=== PATIENT | male | born 1960 | race Caucasian/White ===

== ENCOUNTER → 2021-08-29 | Outpatient (CLI) | payer BC ==
[~2021-08-29] MED LIST: ASPI-1238 PO; ATOR80TA76 PO; CLOP75TA28 PO; FLUO20CA48 PO; FURO-125 PO; ISOS30TA82 PO; METO-351 PO; MTP25TSR PO; MULT-1136 PO; OMG1KC PO; OXC5T PO; PANT40TA52 PO; SENN1TAB76 PO
== END ==
LOC: ORTHO 08:38
PROVIDERS: ATTEND Orthopaedic Surgery
DX: Z47.89 Encounter for other orthopedic aftercare (principal); I25.10 Atherosclerotic heart disease of native coronary artery without angina pectoris; E78.2 Mixed hyperlipidemia; Z98.890 Other specified postprocedural states

== ENCOUNTER → 2021-09-19 | Outpatient (CLI) | payer BC ==
--- NOTE | 2021-09-19 10:16 | Diagnostic Imaging Report ---
INDICATION: Follow-up of the right tibia and fibular fracture. Comparison with 08/13/2021. FINDINGS: Anatomical realignment of the distal comminuted tibial fracture with side plate and bone screws remain in good position. Fracture line is still visible without significant callus. The nondisplaced proximal fibular shaft fracture remains in good alignment with early healing. Ankle mortise shows good alignment. IMPRESSION: 1. ORIF of the distal tibial shaft fracture showing good anatomical alignment. No significant callus formation is seen at this time. Dictated by: Dictated on workstation # [id number]
== END ==
LOC: ORTHO 09:51
PROVIDERS: ATTEND Orthopaedic Surgery
DX: S82.201D Unspecified fracture of shaft of right tibia, subsequent encounter for closed fracture with routine healing (principal); S82.401D Unspecified fracture of shaft of right fibula, subsequent encounter for closed fracture with routine healing; X58.XXXD Exposure to other specified factors, subsequent encounter
CPT/HCPCS: 73590

== ENCOUNTER → 2021-10-31 | Outpatient (CLI) | payer BC ==
--- NOTE | 2021-10-31 11:05 | Diagnostic Imaging Report ---
INDICATION: Right leg fracture followup. TECHNIQUE/COMPARISON: AP and lateral views of the right tibia and fibula were obtained and compared with 09/19/2021. FINDINGS: The distal tibial fracture appears in anatomic alignment with plate and screws in place in the distal tibia. Hardware is unchanged compared to the prior study. There is further healing of the distal tibial fractures but there is persistent lucency at the fracture site. The proximal fibular fracture also shows further healing compared to the prior study but healing is not yet complete. There are vascular calcifications noted. IMPRESSION: Stable alignment of the proximal fibular and distal tibial shaft fractures with further healing compared to the prior study. Stable hardware position in the distal tibia. Dictated by: Dictated on workstation # [id number]
== END ==
LOC: ORTHO 08:10
PROVIDERS: ATTEND Orthopaedic Surgery
DX: S82.91XD Unspecified fracture of right lower leg, subsequent encounter for closed fracture with routine healing (principal); X58.XXXD Exposure to other specified factors, subsequent encounter
CPT/HCPCS: 73590

== ENCOUNTER → 2021-12-05 | Outpatient (CLI) | payer BC ==
--- NOTE | 2021-12-05 08:59 | Diagnostic Imaging Report ---
INDICATION: Tibial fracture AP and lateral views of right lower leg are obtained. Since 10/31/2021, there has been an increase in callus about the spiral fracture of distal tibial shaft. Medial fixation plate and screws remain in place and alignment is unremarkable. There is also near anatomic alignment about the subacute proximal fibular shaft fracture. IMPRESSION: Increasing fracture across the internally fixed tibial fracture and stable subacute proximal fibular shaft fracture. Dictated by: Dictated on workstation # [id number]
== END ==
LOC: ORTHO 08:04
PROVIDERS: ATTEND Orthopaedic Surgery
DX: Z47.89 Encounter for other orthopedic aftercare (principal); S82.201D Unspecified fracture of shaft of right tibia, subsequent encounter for closed fracture with routine healing; S82.401D Unspecified fracture of shaft of right fibula, subsequent encounter for closed fracture with routine healing; X58.XXXD Exposure to other specified factors, subsequent encounter
CPT/HCPCS: 73590; G0463; 99213

== ENCOUNTER → 2022-02-01 | Outpatient (CLI) | payer BC ==
--- NOTE | 2022-02-01 14:25 | Diagnostic Imaging Report ---
TIBIA/FIBULA, RIGHT, 2 VIEWS INDICATION: Fracture follow-up COMPARISON: 12/05/2021 TECHNIQUE: 2 views of the right tibia and fibula FINDINGS: Distal tibial shaft fracture shows progressive healing with increasing callus formation. There is no interosseous bridging within the fracture. The reconstruction plate and screws remain intact. Proximal fibular shaft fracture shows features of healing. Soft tissues over the lower leg have improved but persist. IMPRESSION: Partial healing of distal tibial shaft fracture, status post ORIF. Dictated by: Dictated on workstation # [id number]
== END ==
LOC: ORTHO 08:03
PROVIDERS: ATTEND Orthopaedic Surgery
DX: Z09 Encounter for follow-up examination after completed treatment for conditions other than malignant neoplasm (principal); S82.301D Unspecified fracture of lower end of right tibia, subsequent encounter for closed fracture with routine healing; X58.XXXD Exposure to other specified factors, subsequent encounter
CPT/HCPCS: 73590; G0463; 99213

== ENCOUNTER 2022-03-11 09:55 | Emergency (ER) | payer BC ==
[~2022-03-11] VITALS: Ht 183 cm; Wt 92.1 kg
--- NOTE | 2022-03-11 10:44 | ED Integumentary General ---
General Chief Complaint: Skin/Wound Problems Stated Complaint: RASH ON RIGHT LEG/BACK/CHEST Nursing Triage Note: PT AMB TO FT 1 W C/O IRRITATING/ITCHY RASH ALL OVER BODY. PT STATES AREAS OF CONCERN HAVE BEEN INTERMITTENT X2-3 MONTHS. PT REPORTS HE'S BEEN EVALUATED AT [facility] AND PRESCRIBED SEVERAL TOPICAL CREAMS WELL RECEIVED SEVERAL DIFFERENT DIAGNOSES. PT A&OX4. Source: patient Exam Limitations: no limitations History of Present Illness Date Seen by Provider: Mar 11, 2022 Time Seen by Provider: 10:43 Initial Comments This 61-year-old gentleman presents to the emergency room with concerns about a persistent pestering rash scattered throughout various parts of his body. It has been present since early January, probably more than 6 weeks. It started on the right anterior lower leg after having a splint and boot used after a trauma surgery. It has since spread to other areas including the posterior left knee and the back. He initially treated with miconazole starting on February 01. There was little improvement. He then tried triamcinolone and oral steroids starting on February 08. He felt like the topical triamcinolone helped some. However, symptoms quickly rebounded. There is a linear component to the rash on the right rothman. After he seemed to fail the steroid therapy, he was prescribed permethrin. He has done 1 full treatment of permethrin without improvement. Rash is very pruritic and he has excoriated some areas of it. He denies any new or changed medications. Allergies and Home Medications Allergies Coded Allergies: No Known Drug Allergies (Unverified , 08/30/21) Patient Home Medication List Home Medication List Reviewed: Yes Aspirin (Aspirin EC) 81 Mg Tablet., 81 MG PO DAILY Prescribed by: RAFAEL POTTER on 08/16/21 0943 Atorvastatin Calcium (Atorvastatin Calcium) 80 Mg Tablet, 80 MG PO HS, (Reported) Entered as Reported by: VENANCIO CHRISTIANSON on 08/14/21 1301 Fluoxetine HCl (Fluoxetine HCl) 20 Mg Capsule, 20 MG PO DAILY, (Reported) Entered as Reported by: VENANCIO CHRISTIANSON on 08/14/21 1301 Hydroxyzine HCl (Hydroxyzine HCl) 25 Mg Tablet, 25 MG PO Q4H PRN for ITCHING Prescribed by: AFSHIN RASCON on 03/11/22 1109 Metoprolol Succinate (Metoprolol Succinate) 25 Mg Tab.er.24h, 25 MG PO DAILY, (Reported) Entered as Reported by: VENANCIO CHRISTIANSON on 08/14/21 1301 Multivitamin (Multivitamin) 1 Each Tablet, 1 EACH PO DAILY Prescribed by: RAFAEL POTTER on 08/16/21 0943 Oxycodone Hcl (Oxyir Tablet) 5 Mg Tab, 5 MG PO TID PRN for PAIN-SEVERE (8-10) 1ST LINE Prescribed by: RAFAEL POTTER on 08/16/21 0944 Sennosides/Docusate Sodium (Stool Softener-Laxative Tablet) 8.6 Mg-50 Mg Tablet, 2 EA PO BID PRN for CONSTIPATION-5TH LINE Prescribed by: RAFAEL POTTER on 08/16/21 0943 Terbinafine HCl (Terbinafine HCl) 250 Mg Tablet, 250 MG PO DAILY Prescribed by: AFSHIN RASCON on 03/11/22 1109 Review of Systems Review of Systems Constitutional: no symptoms reported EENTM: no symptoms reported Respiratory: no symptoms reported Cardiovascular: no symptoms reported Gastrointestinal: no symptoms reported Genitourinary: no symptoms reported Musculoskeletal: see HPI Skin: see HPI Psychiatric/Neurological: No Symptoms Reported Endocrine: No Symptoms Reported Hematologic/Lymphatic: No Symptoms Reported Past Aptbnju-Unosro-Raavxe Hx Patient Social History Tobacco Use?: Yes Tobacco type used: Cigarettes Smoking Status: Current Everyday Smoker Use of E-Cig and/or Vaping dev: No Substance use?: No Alcohol Use?: Yes Alcohol type: Beer Immunizations Up To Date Tetanus Booster (TDap): Unknown PED Vaccines UTD: Yes Influenza Vaccine Up-to-Date: No; Not Current First/Initial COVID19 Vaccinat: 2020 Second COVID19 Vaccination Robin: 2020 Third COVID19 Vaccination Date: 2021 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 X3 Seasonal Allergies Seasonal Allergies: No Past Medical History Surgery/Hospitalization HX: HEMORRHAGIC STROKE, CAD Surgeries: Yes (brain, angiocele, L shoulder) Appendectomy, Orthopedic Respiratory: No Currently Using CPAP: No Currently Using BIPAP: No Cardiac: Yes (murmur as a child ) Heart Attack, Hypertension Neurological: Yes Stroke (Hemorrhagic) Genitourinary: No Gastrointestinal: Yes Gastroesophageal Reflux Musculoskeletal: No Endocrine: No HEENT: No Cancer: No Psychosocial: No Integumentary: No Blood Disorders: No Family Medical History Patient reports no known family medical history. No Pertinent Family Hx Physical Exam Vital Signs Vital Signs - First Documented 03/11/22 10:01 Temp 36.6 Pulse 76 Resp 20 B/P (MAP) 154/83 (106) Pulse Ox 98 O2 Delivery Room Air Capillary Refill : Less Than 3 Seconds General Appearance: WD/WN, no apparent distress HEENT: normal ENT inspection Neck: normal inspection Cardiovascular: regular rate, rhythm, no edema, no murmur Respiratory: lungs clear, normal breath sounds, no respiratory distress Neurologic/Psychiatric: no motor/sensory deficits, alert, normal mood/affect, oriented x 3 Skin: warm/dry, rash (Polymorphic rash scattered about the body and most prominent over the right rothman, left posterior knee area, and central upper back. Some areas are excoriated. It is raised and mildly erythematous.) Progress/Results/Core Measures Results/Orders Vital Signs/I&O 03/11/22 03/11/22 10:01 11:17 Temp 36.6 36.6 Pulse 76 76 Resp 20 20 B/P (MAP) 154/83 (106) 154/83 Pulse Ox 98 98 O2 Delivery Room Air Room Air Blood Pressure Mean: 106 Progress Progress Note : Progress Note I suspect the rash is fungal in nature given the fact that it started under the splint and boot region of his right leg. He may have suppressed it with miconazole and improved to the inflammatory symptoms with steroids, but never sufficiently treated the etiology. I will have him do dual therapy of topical steroids and miconazole as well as oral terbinafine with the terbinafine extending beyond the topical therapies. I also advised that he do 1 more round of permethrin for the sake of completeness. Advised that he follow-up with his primary care provider at the conclusion of 2 weeks and seek referral to a bread dough mixer if not resolved. See discharge instructions for further discussion. Departure Impression Primary Impression: Pruritic rash Disposition: HOME, SELF-CARE Condition: Stable Departure-Patient Inst. Decision time for Depature: 11:04 Referrals: RAFAEL POTTER DO (PCP/Family) Primary Care Physician Patient Instructions: Fungal Skin Rash Add. Discharge Instructions: Your skin rash is likely caused by a fungal infection triggered by use of the splint and boot after surgery. Use 1 more dose of the permethrin cream to treat possible parasitic infection. To treat fungal infection, use the triamcinolone steroid cream in combination with the miconazole topical cream twice daily for 10 days. A very thin layer on affected areas should suffice. Use terbinafine antifungal tablets daily for the next 2 weeks. If rash is not completely resolved by that time, refill the medication and continue for another 2 weeks. You should continue the terbinafine antifungal for several days after stopping the steroid cream. Do not use the triamcinolone steroid cream for more than 10 more days. For itching you may use Benadryl (diphenhydramine) 25 to 50 mg every 4 hours as needed. Alternatively, you may use hydroxyzine as prescribed. Benadryl and hydroxyzine may cause drowsiness, so use with caution. Make an appointment to follow-up with your doctor in 2 weeks for reevaluation. If this treatment course does not resolve the problem, you may need referral to a bread dough mixer and a biopsy to determine the cause of the problem. Call your doctor or return to care if you are having worsening symptoms despite following these instructions. All discharge instructions reviewed with patient and/or family. Voiced understanding. Scripts Hydroxyzine HCl (Hydroxyzine HCl) 25 Mg Tablet 25 MG PO Q4H PRN for ITCHING, #20 TAB Prov: AFSHIN CAMPA MD 03/11/22 Terbinafine HCl (Terbinafine HCl) 250 Mg Tablet 250 MG PO DAILY, #14 TAB 1 Refill Prov: AFSHIN CAMPA MD 03/11/22 Copy Copies To 1: RAFAEL POTTER JOSHUA T MD Mar 11, 2022 10:44
[2022-03-11] MEDS ORDERED: HYDR-700 PO (11:09)
[2022-03-11] MEDS ORDERED: TERB250T88 PO (11:09)
[2022-03-11 11:17] VITALS: BP 154/83
== END 2022-03-11 11:17 | disposition home or self-care (01) ==
LOC: EDUNIT# 09:55 → ER 09:59
DX: L29.9 Pruritus, unspecified (principal); F17.210 Nicotine dependence, cigarettes, uncomplicated